=== PATIENT | male | born 1935 | race Caucasian/White ===

== ENCOUNTER 2022-10-17 02:59 | Emergency (ER) | payer MEDICARE ==
[2022-10-17 05:15] LABS: Bacteria/HPF None Seen HPF (None Seen); Bilirubin Negative (Negative); Blood, Urine 1+ (Negative); Clarity Clear (Clear); Glucose, Urine (Dipstick) Normal (Negative); Ketone, Urine Negative (Negative); Leukocyte Negative Leu/uL (Negative); Nitrite Negative (Negative); Protein, Urine (Dipstick) 10 mg/dL (Neg-Trace); Specific Gravity, Urine 1.011 (1.002-1.036); Squamous Epithelial 0-3 HPF (0-3); Urobilinogen Normal mg/dL (Less than 2)
[2022-10-17] MEDS ORDERED: Acetaminophen 500 MG TAB ONE (05:27)
[2022-10-17] MEDS ORDERED: Boostrix 0.5 ML (Tdap) VIAL (>/=7 yrs of age) ONE (05:27)
[2022-10-17 05:36] LABS: #Basophils 0.1 thou/uL (0.0-0.2); #Eosinphils 0.1 thou/uL (0.0-0.7); #Lymphocytes 2.1 thou/uL (1.20-3.40); #Monocytes 0.8 thou/uL (0.11-0.59); #Neutrophils 5.8 thou/uL (1.40-6.50); %Basophils 0.7 % (0.0-1.0); %Eosinophils 1.6 % (0.0-10.0); %Lymphocytes 23.9 % (21.0-51.0); %Monocytes 8.4 % (0.0-10.0); %Neutrophils 65.3 % (42.0-75.0); Hemoglobin 10.8 g/dL (14.0-18.0); Mean Corpuscular HGB CONC 35.2 g/dL (32.0-36.0); Mean Corpuscular Hemoglobin 35.6 pg (27.0-31.0); Mean Platelet Volume 7.2 fL (7.4-10.4); Platelet Count 164 10x3/uL (130-400); RBC Distribution Width 12.7 % (11.5-14.5); Red Blood Cell (RBC) Count 3.04 mill/uL (4.70-6.10); White Blood Cell (WBC) Count 8.9 10x3/uL (4.8-10.8)
[2022-10-17 05:47] LABS: INR-International Normal Ratio 1.1; PTT 25.4 sec (22.9-36.1); Prothrombin Time 14.2 sec (12.0-14.7)
[2022-10-17 05:56] LABS: ALT (SGPT) 8 U/L (8-55); AST (SGOT) 15 U/L (5-34); Albumin 3.1 g/dL (3.4-4.8); Alkaline Phosphatase 115 U/L (40-110); Anion Gap 13 mmol/L (10-20); BUN (Urea Nitrogen) 16 mg/dL (8.4-25.7); Bilirubin, Total 0.7 mg/dL (0.2-1.2); CK (CPK) 45 U/L (30-200); Calc. Creatinine Clearance 0 mL/min (70-130); Calcium 8.6 mg/dL (7.8-10.44); Carbon Dioxide 30 mmol/L (23-31); Chloride 101 mmol/L (98-107); Estimated GFR 31; Globulin 3.2 g/dL (2.4-3.5); Glucose 89 mg/dL (83-110); Potassium 3.6 mmol/L (3.5-5.1); Protein, Total 6.3 g/dL (5.8-8.1); Sodium 140 mmol/L (136-145)
[2022-10-17] MEDS ORDERED: cefTRIAXone (ROCEPHIN) 1 GM VIAL ONE (05:58)
== END 2022-10-17 08:33 ==
LOC: ERS 02:59
DX: N39.0 Urinary tract infection, site not specified (principal); R29.6 Repeated falls; E78.00 Pure hypercholesterolemia, unspecified
CPT/HCPCS: 36415; 51701; 70450; 71045; 72125; 80053; 81003; 81015; 82550; 84484; 85025; 85610; 85730; 90471; 90715; 93005; 96365; J0696

== ENCOUNTER 2023-04-01 16:45 | Emergency (ER) | payer MEDICARE ==
[2023-04-01 17:25] LABS: #Eosinphils 0.3 thou/uL (0.0-0.7); #Neutrophils 4.6 thou/uL (1.40-6.50); %Basophils 0.5 % (0.0-1.0); %Eosinophils 3.1 % (0.0-10.0); %Lymphocytes 25.7 % (21.0-51.0); %Monocytes 12.7 % (0.0-10.0); %Neutrophils 57.5 % (42.0-75.0); Hematocrit 30.2 % (42.0-52.0); Hemoglobin 10.1 g/dL (14.0-18.0); Mean Corpuscular HGB CONC 33.4 g/dL (32.0-36.0); Mean Corpuscular Hemoglobin 34.8 pg (27.0-31.0); Mean Corpuscular Volume 104.1 fl (78.0-98.0); Mean Platelet Volume 9.1 fL (7.4-10.4); Platelet Count 145 10x3/uL (130-400); RBC Distribution Width 13.3 % (11.5-14.5)
[2023-04-01 17:52] LABS: ALT (SGPT) 12 U/L (8-55); AST (SGOT) 13 U/L (5-34); Albumin 3.8 g/dL (3.4-4.8); Alkaline Phosphatase 87 U/L (40-110); Anion Gap 11 mmol/L (10-20); BUN (Urea Nitrogen) 29 mg/dL (8.4-25.7); Bilirubin, Total 0.3 mg/dL (0.2-1.2); Calc. Creatinine Clearance 0 mL/min (70-130); Calcium 9.1 mg/dL (7.8-10.44); Carbon Dioxide 29 mmol/L (23-31); Chloride 104 mmol/L (98-107); Estimated GFR 31; Globulin 2.9 g/dL (2.4-3.5); Glucose 108 mg/dL (83-110); Potassium 4.4 mmol/L (3.5-5.1); Protein, Total 6.7 g/dL (5.8-8.1); Sodium 140 mmol/L (136-145)
[2023-04-01 17:55] LABS: Bacteria/HPF None Seen HPF (None Seen); Bilirubin Negative (Negative); Blood, Urine Negative (Negative); CAUTI Indications for Culture Pelvic or flank pain; Clarity Clear (Clear); Glucose, Urine (Dipstick) Normal (Negative); Ketone, Urine Negative (Negative); Leukocyte Negative Leu/uL (Negative); Nitrite Negative (Negative); Protein, Urine (Dipstick) 30 mg/dL (Neg-Trace); RBC/HPF 0-3 HPF (0-3); Specific Gravity, Urine 1.015 (1.002-1.036); Squamous Epithelial 0-3 HPF (0-3); Urobilinogen Normal mg/dL (Less than 2); WBC/HPF 0-3 HPF (0-3); pH, Urine 7.5 (5.0-9.0)
[2023-04-01 17:58] LABS: Urine Culture Reflex No No
== END 2023-04-02 00:44 ==
LOC: ERS 16:45
DX: K40.90 Unilateral inguinal hernia, without obstruction or gangrene, not specified as recurrent (principal); E78.00 Pure hypercholesterolemia, unspecified; Z86.73 Personal history of transient ischemic attack (TIA), and cerebral infarction without residual deficits; Z79.82 Long term (current) use of aspirin
CPT/HCPCS: 36415; 74176; 80053; 81001; 85025

== ENCOUNTER 2023-06-30 02:20 | Inpatient (IN) | payer MEDICARE, MEDICAID ==
[2023-06-30 04:03] VITALS: BMI 29.0
[2023-06-30] MEDS ORDERED: Sodium Chloride 0.9% 1,000 ML IV SCH (04:15)
[2023-06-30] MEDS ORDERED: Acetaminophen 325 MG TAB PO PRN (04:15)
[2023-06-30] MEDS ORDERED: Ondansetron PF 4 MG/2 ML Vial IVP PRN (04:50)
[2023-06-30] MEDS ORDERED: Ondansetron ODT 4 MG TAB PO PRN (04:50)
[2023-06-30] MEDS ORDERED: Albuterol 200 PUFF (6.7GM INHALER) INH PRN (05:37)
[2023-06-30] MEDS ORDERED: Dextrose 5% in Water 1,000 ML IV PRN (05:47)
[2023-06-30] MEDS ORDERED: Dextrose 50% Abboject 50 ML SYRINGE SLOW IVP PRN (05:47)
[2023-06-30] MEDS ORDERED: HumaLOG 300 UNITS/3 ML VIAL SC PRN ×2 (05:47)
[2023-06-30] MEDS ORDERED: Glucagon 1 MG/ML KIT IM PRN (05:47)
[2023-06-30] MEDS ORDERED: FLU VACC QS2023(65UP)/MF59C/PF 60 MCG/0.5 ML SYRINGE IM ONE (09:00)
[2023-06-30] MEDS ORDERED: REMDESIVIR 200 MG in Sodium Chloride 0.9% 250 ML 210 ML IV SCH (10:00)
[2023-06-30] MEDS: Ascorbic Acid 500 mg Chewable Tablet PO SCH (10:22)
[2023-06-30] MEDS: Cholecalciferol (Vitamin D3) 400 UNITS TAB PO SCH (10:22)
[2023-06-30] MEDS: Zinc Sulfate 220 MG CAP PO SCH (10:22)
[2023-06-30] MEDS ORDERED: Acetaminophen 650 MG Suppository PR SCH (15:15)
[2023-06-30] MEDS: methylPREDNISolone Sod Succ 40 MG VIAL IVP SCH ×2 (15:56→23:41)
[2023-06-30] MEDS: Dextrose 5 %-0.45 % NaCl 1,000 ML IV SCH (17:55)
[2023-06-30] MEDS: Albuterol 200 PUFF (6.7GM INHALER) INH SCH (19:30)
[2023-06-30] MEDS ORDERED: Megestrol Acetate 40 MG TAB PO SCH (21:00)
[2023-06-30] MEDS: Divalproex Sodium 250 MG (DR) TAB PO SCH (21:17)
[2023-06-30] MEDS: Donepezil HCl 10 MG TAB PO SCH (21:17)
[2023-06-30] MEDS: Tamsulosin HCl 0.4 MG CAP PO SCH (21:18)
[2023-07-01 05:54] LABS: Hematocrit 35.6 % (42.0-52.0); Hemoglobin 11.6 g/dL (14.0-18.0); Manual Diff?? YES; Mean Corpuscular HGB CONC 32.6 g/dL (32.0-36.0); Mean Corpuscular Hemoglobin 34.1 pg (27.0-31.0); Mean Corpuscular Volume 104.7 fl (78.0-98.0); Mean Platelet Volume 9.8 fL (7.4-10.4); Platelet Count 125 10x3/uL (130-400); White Blood Cell (WBC) Count 9.3 10x3/uL (4.8-10.8)
[2023-07-01 06:09] LABS: Delete Auto Diff?? YES
[2023-07-01 06:14] LABS: Anion Gap 11 mmol/L (10-20); BUN (Urea Nitrogen) 47 mg/dL (8.4-25.7); Calc. Creatinine Clearance 33 mL/min (70-130); Calcium 8.4 mg/dL (7.8-10.44); Carbon Dioxide 22 mmol/L (23-31); Chloride 110 mmol/L (98-107); Estimated GFR 29; Glucose 162 mg/dL (83-110); Potassium 3.9 mmol/L (3.5-5.1); Sodium 139 mmol/L (136-145)
[2023-07-01 06:19] LABS: ALT (SGPT) 26 U/L (8-55); AST (SGOT) 36 U/L (5-34); Albumin 3.2 g/dL (3.4-4.8); Alkaline Phosphatase 55 U/L (40-110); Bilirubin, Direct 0.3 mg/dL (0.1-0.3); Bilirubin, Total 0.7 mg/dL (0.2-1.2)
[2023-07-01] MEDS: Dextrose 5 %-0.45 % NaCl 1,000 ML IV SCH ×2 (06:33→16:56)
[2023-07-01 07:32] LABS: Band 57 % (5-11); CellaVision Operator ID LAB.MJL; Lymphocytes 12 % (21-51); Macrocytosis SLIGHT = 6-15 cells HPF (0-5); Metamyelocyte 7 % (0-0); Monocytes 13 % (0-10); Neutrophil 12 % (42-75); Platelet Adequacy Comment Platelets Decreased; Polychromasia SLIGHT = 2-3 cells HPF (0-2); Reflex for Review?? YES; Total Cell Count 102
[2023-07-01] MEDS ORDERED: REMDESIVIR 100 MG in Sodium Chloride 0.9% 250 ML 230 ML IV SCH (09:00)
[2023-07-01] MEDS: Pantoprazole 40 MG VIAL IVP SCH (09:21)
[2023-07-01] MEDS: methylPREDNISolone Sod Succ 40 MG VIAL IVP SCH ×3 (09:21→23:13)
[2023-07-01] MEDS: MOLNUPIRAVIR (EUA) 200 MG CAPSULE PO SCH ×2 (10:44→20:11)
[2023-07-01] MEDS: Albuterol 200 PUFF (6.7GM INHALER) INH SCH ×4 (10:45→19:18)
[2023-07-01] MEDS: Zinc Sulfate 220 MG CAP PO SCH (10:45)
[2023-07-01] MEDS: Ascorbic Acid 500 mg Chewable Tablet PO SCH (10:45)
[2023-07-01] MEDS: Divalproex Sodium 125 mg Sprinkle Capsule PO SCH (10:45)
[2023-07-01] MEDS: DULoxetine 30 MG CAP PO SCH (10:46)
[2023-07-01] MEDS: Cholecalciferol (Vitamin D3) 400 UNITS TAB PO SCH (10:46)
[2023-07-01] MEDS ORDERED: Vancomycin HCl 750 MG in Sodium Chloride 0.9% 250 ML 250 ML IVPB SCH (12:00)
[2023-07-01] MEDS: Piperacillin/Tazobactam 2.25 GM in Sodium Chloride 0.9% 100 ML IVPB SCH ×2 (13:39→23:12)
[2023-07-01] MEDS ORDERED: Vancomycin (BATCH) 1.5 GM in Premix 1 BAG IVPB SCH (14:00)
[2023-07-01] MEDS: Divalproex Sodium 250 MG (DR) TAB PO SCH (20:11)
[2023-07-01] MEDS: Donepezil HCl 10 MG TAB PO SCH (20:11)
[2023-07-01] MEDS: Tamsulosin HCl 0.4 MG CAP PO SCH (20:11)
[2023-07-02] MEDS: Dextrose 5 %-0.45 % NaCl 1,000 ML IV SCH ×2 (04:37→18:26)
[2023-07-02] MEDS: Piperacillin/Tazobactam 2.25 GM in Sodium Chloride 0.9% 100 ML IVPB SCH ×2 (05:30→13:19)
[2023-07-02 06:52] LABS: Hemoglobin 9.5 g/dL (14.0-18.0); Manual Diff?? YES; Mean Corpuscular HGB CONC 32.8 g/dL (32.0-36.0); Mean Corpuscular Hemoglobin 34.4 pg (27.0-31.0); Mean Corpuscular Volume 105.1 fl (78.0-98.0); Mean Platelet Volume 10.4 fL (7.4-10.4); Platelet Count 110 10x3/uL (130-400); RBC Distribution Width 12.6 % (11.5-14.5); Red Blood Cell (RBC) Count 2.76 mill/uL (4.70-6.10); White Blood Cell (WBC) Count 7.5 10x3/uL (4.8-10.8)
[2023-07-02 07:02] LABS: Delete Auto Diff?? YES
[2023-07-02 07:16] LABS: Anion Gap 10 mmol/L (10-20); BUN (Urea Nitrogen) 49 mg/dL (8.4-25.7); Calc. Creatinine Clearance 35 mL/min (70-130); Calcium 8.2 mg/dL (7.8-10.44); Carbon Dioxide 21 mmol/L (23-31); Chloride 111 mmol/L (98-107); Estimated GFR 31; Glucose 145 mg/dL (83-110); Sodium 138 mmol/L (136-145)
[2023-07-02 07:38] LABS: Band 48 % (5-11); CellaVision Operator ID lab.dlt; Large Platelets 1.8 % (0-5); Lymphocytes 15 % (21-51); Macrocytosis SLIGHT = 6-15 cells HPF (0-5); Monocytes 3 % (0-10); Neutrophil 34 % (42-75); Platelet Adequacy Comment Platelets Decreased; Polychromasia SLIGHT = 2-3 cells HPF (0-2); Reactive Lymphocytes 1 % (0-10); Total Cell Count 110
[2023-07-02] MEDS: Pantoprazole 40 MG VIAL IVP SCH (08:44)
[2023-07-02] MEDS: methylPREDNISolone Sod Succ 40 MG VIAL IVP SCH ×3 (08:44→22:43)
[2023-07-02] MEDS: Divalproex Sodium 125 mg Sprinkle Capsule PO SCH (08:45)
[2023-07-02] MEDS: Zinc Sulfate 220 MG CAP PO SCH (08:45)
[2023-07-02] MEDS: Ascorbic Acid 500 mg Chewable Tablet PO SCH (08:45)
[2023-07-02] MEDS: Cholecalciferol (Vitamin D3) 400 UNITS TAB PO SCH (08:45)
[2023-07-02] MEDS: DULoxetine 30 MG CAP PO SCH (08:45)
[2023-07-02] MEDS ORDERED: Vancomycin Dose by Levels Sliding Scale (Wt 71-99) FS SCH (11:45)
[2023-07-02] MEDS: MOLNUPIRAVIR (EUA) 200 MG CAPSULE PO SCH ×2 (11:50→20:44)
[2023-07-02 14:36] LABS: Vancomycin, Random 8.5 ug/mL (See Comment)
[2023-07-02] MEDS ORDERED: Vancomycin 1 GM in Premix 1 BAG IVPB SCH (15:30)
[2023-07-02] MEDS: Albuterol 200 PUFF (6.7GM INHALER) INH SCH ×2 (18:25→19:01)
[2023-07-02] MEDS: Piperacillin/Tazobactam 3.375 GM in Sodium Chloride 0.9% 100 ML IVPB SCH (20:34)
[2023-07-02] MEDS: Benzonatate 100 MG CAP PO PRN (20:34)
[2023-07-02] MEDS: Donepezil HCl 10 MG TAB PO SCH (20:35)
[2023-07-02] MEDS: Tamsulosin HCl 0.4 MG CAP PO SCH (20:35)
[2023-07-02] MEDS: Divalproex Sodium 250 MG (DR) TAB PO SCH (20:58)
[2023-07-03] MEDS: Benzonatate 100 MG CAP PO PRN (05:22)
[2023-07-03] MEDS: Piperacillin/Tazobactam 3.375 GM in Sodium Chloride 0.9% 100 ML IVPB SCH ×2 (05:22→12:26)
[2023-07-03 06:40] LABS: #Monocytes 0.4 thou/uL (0.11-0.59); #Neutrophils 7.7 thou/uL (1.40-6.50); %Basophils 0.1 % (0.0-1.0); %Lymphocytes 14.7 % (21.0-51.0); %Monocytes 3.8 % (0.0-10.0); %Neutrophils 79.9 % (42.0-75.0); Hematocrit 30.8 % (42.0-52.0); Hemoglobin 10.1 g/dL (14.0-18.0); Mean Corpuscular HGB CONC 32.8 g/dL (32.0-36.0); Mean Corpuscular Hemoglobin 34.1 pg (27.0-31.0); Mean Corpuscular Volume 104.1 fl (78.0-98.0); Mean Platelet Volume 10.4 fL (7.4-10.4); Platelet Count 122 10x3/uL (130-400); RBC Distribution Width 12.2 % (11.5-14.5); Red Blood Cell (RBC) Count 2.96 mill/uL (4.70-6.10); White Blood Cell (WBC) Count 9.6 10x3/uL (4.8-10.8)
[2023-07-03 07:02] LABS: Anion Gap 11 mmol/L (10-20); BUN (Urea Nitrogen) 51 mg/dL (8.4-25.7); Calc. Creatinine Clearance 40 mL/min (70-130); Calcium 8.2 mg/dL (7.8-10.44); Carbon Dioxide 22 mmol/L (23-31); Chloride 111 mmol/L (98-107); Estimated GFR 36; Glucose 151 mg/dL (83-110); Potassium 3.8 mmol/L (3.5-5.1); Sodium 140 mmol/L (136-145)
[2023-07-03] MEDS: Dextrose 5 %-0.45 % NaCl 1,000 ML IV SCH (07:06)
[2023-07-03] MEDS: Albuterol 200 PUFF (6.7GM INHALER) INH SCH ×3 (07:30→15:05)
[2023-07-03] MEDS: methylPREDNISolone Sod Succ 40 MG VIAL IVP SCH ×2 (08:20→15:40)
[2023-07-03] MEDS: Pantoprazole 40 MG VIAL IVP SCH (08:21)
[2023-07-03] MEDS: Divalproex Sodium 125 mg Sprinkle Capsule PO SCH (08:21)
[2023-07-03] MEDS: Ascorbic Acid 500 mg Chewable Tablet PO SCH (08:22)
[2023-07-03] MEDS: Cholecalciferol (Vitamin D3) 400 UNITS TAB PO SCH (08:22)
[2023-07-03] MEDS: DULoxetine 30 MG CAP PO SCH (08:22)
[2023-07-03] MEDS: MOLNUPIRAVIR (EUA) 200 MG CAPSULE PO SCH (08:22)
[2023-07-03] MEDS: Zinc Sulfate 220 MG CAP PO SCH (08:22)
[2023-07-03 09:39] VITALS: BP 120/56; TEMP 97.9
[2023-07-03] MEDS ORDERED: Furosemide 20 MG/2 ML VIAL SLOW IVP SCH (15:15)
[2023-07-03 15:36] LABS: Vancomycin, Random 10.5 ug/mL (See Comment)
[2023-07-03] MEDS ORDERED: Vancomycin HCl 750 MG in Sodium Chloride 0.9% 250 ML 250 ML IVPB SCH (17:00)
[2023-07-03] MEDS ORDERED: Vancomycin 1 GM in Premix 1 BAG IVPB SCH (18:00)
== END 2023-07-03 18:12 | DRG 177 ==
LOC: T4-B 03:57 → OBSVTOIN 12:03
PROVIDERS: ADMIT Student in an Organized Health Care Education/Training Program; ATTEND Internal Medicine
PROC: XW033E5 Introduction of Remdesivir Anti-infective into Peripheral Vein, Percutaneous Approach, New Technology Group 5 (ICD-10-PCS; principal; 2023-06-30)
PROC: 8E0ZXY6 Isolation (ICD-10-PCS; 2023-06-30)
DX: U07.1 COVID-19 (principal); A41.9 Sepsis, unspecified organism; J96.01 Acute respiratory failure with hypoxia; G93.41 Metabolic encephalopathy; I42.9 Cardiomyopathy, unspecified; N17.9 Acute kidney failure, unspecified; N18.4 Chronic kidney disease, stage 4 (severe); F03.90 Unspecified dementia, unspecified severity, without behavioral disturbance, psychotic disturbance, mood disturbance, and anxiety; E11.22 Type 2 diabetes mellitus with diabetic chronic kidney disease; R62.7 Adult failure to thrive; D64.9 Anemia, unspecified; I12.9 Hypertensive chronic kidney disease with stage 1 through stage 4 chronic kidney disease, or unspecified chronic kidney disease; E87.5 Hyperkalemia; Z86.73 Personal history of transient ischemic attack (TIA), and cerebral infarction without residual deficits; Z79.82 Long term (current) use of aspirin; Z79.899 Other long term (current) drug therapy; Z95.0 Presence of cardiac pacemaker; Z98.890 Other specified postprocedural states
CPT/HCPCS: 36415; 36416; 71045; 71250; 76770; 78451; 80048; 80076; 80202; 82728; 83615; 83880; 84145; 85025; 85060; 85379; 86140; 87040; 87086; 96372; A9540; C9113; G0378; J0248; J1650; J1815; J1940; J2543; J2920; J3370; J3370-JW; J3490; J7042; J7050